=== PATIENT | female | born 1945 | race Caucasian/White ===

== ENCOUNTER 2021-12-19 09:41 | Emergency (ER) | payer MEDICARE ==
[~2021-12-19] VITALS: Ht 165.1 cm; Wt 86.0 kg
[2021-12-19 10:16] LABS: BASOPHILS % (AUTO) 0.9 % (0.0-2.0); EOSINOPHILS % (AUTO) 1.5 % (1.0-6.0); HEMOGLOBIN 11.9 g/dL (12.0-16.0); LYMPHOCYTES # (AUTO) 2.1 K/uL (1.0-4.8); LYMPHOCYTES % (AUTO) 27.6 % (22.0-44.0); MEAN CORPUSCULAR HEMOGLOBIN 28.7 pg (26.0-34.0); MEAN CORPUSCULAR HGB CONC 33.1 G/dL (31.0-37.0); MEAN CORPUSCULAR VOLUME 87 fL (80-100); MONOCYTES # (AUTO) 0.5 K/uL (0.1-1.0); MONOCYTES % (AUTO) 6.7 % (2.0-9.0); NEUTROPHILS # (AUTO) 4.8 K/uL (1.8-7.7); NEUTROPHILS % (AUTO) 63.3 % (40.0-70.0); PLATELET COUNT (AUTO) 383 K/uL (150-450); RED BLOOD CELL COUNT(AUTO) 4.15 MIL/uL (4.00-5.20); RED CELL DISTRIBUTION WIDTH 16.8 % (11.5-14.5)
[2021-12-19 10:27] LABS: ANION GAP 10 mmol/L (8-16); CALCIUM, TOTAL 9.7 mg/dL (8.8-10.5); CARBON DIOXIDE 24 mmol/L (22-29); CHLORIDE 108 mmol/L (98-107); CREATININE 0.63 mg/dL (0.60-1.30); GLUCOSE,RANDOM 99 mg/dL (70-110); POTASSIUM 3.6 mmol/L (3.5-5.1); SODIUM SERUM 142 mmol/L (136-145); UREA NITROGEN, BLOOD 15 mg/dL (7-18)
[2021-12-19 10:30] LABS: GLOMERULAR FILTR. RATE CALC > 60 mL/min (>60)
[2021-12-19 10:32] LABS: ALANINE AMINOTRANSFERASE 29 U/L (12-78); ALBUMIN 2.8 g/dL (3.4-5.0); ALKALINE PHOSPHATASE 44 U/L (46-116); ASPARTATE AMINOTRANSFERASE 17 U/L (15-37); BILIRUBIN,TOTAL 0.2 mg/dL (0.1-1.0); C-REACTIVE PROTEIN QUANT 6.83 mg/dL (0.00-0.30); TOTAL PROTEIN, SERUM 6.7 g/dL (6.4-8.2)
[2021-12-19] MEDS ORDERED: CETI-450 PO (11:04)
[2021-12-19] MEDS ORDERED: DULO-113 PO (11:04)
[2021-12-19] MEDS ORDERED: TOPI100T37 PO (11:04)
[2021-12-19] MEDS ORDERED: MIRT30 PO (11:04)
[2021-12-19] MEDS ORDERED: ZOLP10TA8 PO (11:04)
[2021-12-19] MEDS ORDERED: OMEP20 PO (11:04)
[2021-12-19] MEDS ORDERED: HYDR-4527 PO (11:04)
[2021-12-19] MEDS ORDERED: LOPE2CAP PO (11:04)
[2021-12-19] MEDS ORDERED: GABA-1181 PO (11:04)
[2021-12-19 11:23] LABS: ERYTHROCYTE SEDIMENTATION RATE 45 MM/HR (0-20)
[2021-12-19] MEDS ORDERED: IBUPROFEN 600 MG TABLET PO ONE (11:30)
[2021-12-19] MEDS ORDERED: CefTRIAXone 1 GM/DEXTROSE 50 ML IV ONE (12:30)
[2021-12-19 13:51] VITALS: BP 121/68
[2021-12-19] MEDS ORDERED: IBUP-2070 PO (14:05)
[2021-12-19] MEDS ORDERED: SULF-261 PO (14:05)
[2021-12-19] MEDS ORDERED: CEPH-558 PO (14:05)
== END 2021-12-19 14:45 | disposition home or self-care (01) ==
LOC: EMS 09:47
DX: L03.116 Cellulitis of left lower limb (principal); Z79.899 Other long term (current) drug therapy
CPT/HCPCS: 99284; 96365; 80053; 85025; 85651; 86140; 87040; 36415; 73590; J0696

== ENCOUNTER 2023-01-20 06:48 | Emergency (ER) | payer MEDICARE, OTHER ==
[~2023-01-20] VITALS: Ht 162.6 cm; Wt 86.0 kg
[~2023-01-20 06:48] MED LIST: CEPH-558 PO; CETI-450 PO; DULO-113 PO; GABA-1181 PO; HYDR-4527 PO; IBUP-1492 PO; LOPE2CAP PO; MIRT-149 PO; OMEP20 PO; SULF-261 PO; TOPI100T37 PO; ZOLP-162 PO
[2023-01-20 07:02] VITALS: TEMP 98.8
[2023-01-20 07:31] LABS: BASOPHILS % (AUTO) 0.6 % (0.0-2.0); EOSINOPHILS % (AUTO) 0.8 % (1.0-6.0); HEMOGLOBIN 12.2 g/dL (12.0-16.0); LYMPHOCYTES # (AUTO) 2.1 K/uL (1.0-4.8); LYMPHOCYTES % (AUTO) 21.1 % (22.0-44.0); MEAN CORPUSCULAR HEMOGLOBIN 25.9 pg (26.0-34.0); MEAN CORPUSCULAR VOLUME 81 fL (80-100); MONOCYTES # (AUTO) 0.5 K/uL (0.1-1.0); MONOCYTES % (AUTO) 4.8 % (2.0-9.0); NEUTROPHILS # (AUTO) 7.3 K/uL (1.8-7.7); NEUTROPHILS % (AUTO) 72.7 % (40.0-70.0); PLATELET COUNT (AUTO) 400 K/uL (150-450); RED BLOOD CELL COUNT(AUTO) 4.69 MIL/uL (4.00-5.20); RED CELL DISTRIBUTION WIDTH 26.4 % (11.5-14.5); WHITE BLOOD COUNT (AUTO) 10.1 K/uL (4.5-11.0)
[2023-01-20 07:40] LABS: ANION GAP 7 mmol/L (8-16); CARBON DIOXIDE 27 mmol/L (22-29); CHLORIDE 103 mmol/L (98-107); CREATININE 0.75 mg/dL (0.60-1.30); GLOMERULAR FILTR. RATE CALC > 60 mL/min (>60); GLUCOSE,RANDOM 176 mg/dL (70-110); POTASSIUM 3.8 mmol/L (3.5-5.1); SODIUM SERUM 137 mmol/L (136-145); UREA NITROGEN, BLOOD 24 mg/dL (7-18)
[2023-01-20 07:41] LABS: CALCIUM, TOTAL 9.5 mg/dL (8.8-10.5)
[2023-01-20 07:46] LABS: ALANINE AMINOTRANSFERASE 36 U/L (12-78); ALKALINE PHOSPHATASE 79 U/L (46-116); ASPARTATE AMINOTRANSFERASE 16 U/L (15-37); BILIRUBIN,TOTAL 0.2 mg/dL (0.1-1.0); LIPASE 31 U/L (16-77)
[2023-01-20 07:48] LABS: TROPONIN I-HIGH SENSITIVITY 5 ng/L (<51)
[2023-01-20 07:49] LABS: LACTIC ACID 1.1 mmol/L (0.4-2.0)
[2023-01-20] MEDS: LORazepam 1 MG TABLET PO ONE ×2 (07:59→08:05)
[2023-01-20] MEDS ORDERED: ACETAMINOPHEN 500 MG TABLET PO ONE (08:00)
[2023-01-20 08:25] LABS: RBC MORPHOLOGY COMMENT ABNORMAL RBC MORPH
[2023-01-20 09:30] VITALS: BP 145/80; PULSE 70; RESP 14
[2023-01-26] MEDS ORDERED: METH-386 PO (10:11)
== END 2023-01-20 11:33 | disposition home or self-care (01) ==
LOC: EMS 06:49
DX: F41.9 Anxiety disorder, unspecified (principal); F69 Unspecified disorder of adult personality and behavior; R00.2 Palpitations; M19.90 Unspecified osteoarthritis, unspecified site; F32.A Depression, unspecified; F03.90 Unspecified dementia, unspecified severity, without behavioral disturbance, psychotic disturbance, mood disturbance, and anxiety; Z98.890 Other specified postprocedural states
CPT/HCPCS: 71045; 80053; 83605; 83690; 84484; 85025; 93005; 99285; 36415-L1; 36415-TC